=== PATIENT | female | born 1975 | race Caucasian/White ===

== ENCOUNTER 2021-05-09 20:29 | Emergency (ER) | payer OTHER ==
[~2021-05-09] VITALS: Ht 172.7 cm; Wt 65.8 kg
[2021-05-09] MEDS ORDERED: ULTRACET PO (22:30)
[2021-05-09] MEDS ORDERED: ECOTRIN81 MG PO (22:30)
== END 2021-05-09 22:33 | disposition home or self-care (01) ==
LOC: ER 20:29
DX: S82.891A Other fracture of right lower leg, initial encounter for closed fracture (principal); X50.1XXA Overexertion from prolonged static or awkward postures, initial encounter; Y93.59 Activity, other involving other sports and athletics played individually; Y92.312 Tennis court as the place of occurrence of the external cause; Y99.8 Other external cause status